=== PATIENT | female | born 1945 | race Caucasian/White ===

== ENCOUNTER 2018-04-16 15:11 | Emergency (ER) | payer MEDICARE ==
[2018-04-16 15:20] VITALS: O2SAT 96
--- NOTE | 2018-04-16 17:18 | CT ---
PROCEDURE: CT HEAD WITHOUT CONTRAST. HISTORY: dizziness COMPARISON: None available. TECHNIQUE: Axial computed tomography images were obtained through the head/brain without intravenous contrast. Radiation dose: Total exam DLP = 890.91 mGy-cm. This CT exam was performed using one or more of the following dose reduction techniques: Automated exposure control, adjustment of the mA and/or kV according to patient size, and/or use of iterative reconstruction technique. FINDINGS: HEMORRHAGE: No intracranial hemorrhage. BRAIN: No mass effect or edema. No atrophy or chronic microvascular ischemic changes. VENTRICLES: Unremarkable. No hydrocephalus. CALVARIUM: Unremarkable. PARANASAL SINUSES: Unremarkable as visualized. No significant inflammatory changes. MASTOID AIR CELLS: Unremarkable as visualized. No inflammatory changes. OTHER FINDINGS: None. IMPRESSION: No evidence of acute intracranial hemorrhage mass effect or midline shift.
--- NOTE | 2018-04-16 17:44 | C.PDOC ---
History Of Present Illness 72yo female, presents to ED stating her ears have been clogged for 2 weeks and she has intermittent episodes of dizziness. She denies any associated headache, shortness of breath, chest pain, nausea, vomiting. She also denies any injuries or trauma. Patient has no other medical complaints. PMD: None Time Seen by Provider: 04/16/18 15:32 Chief Complaint (Nursing): ENT Problem History Per: Patient History/Exam Limitations: None Onset/Duration Of Symptoms: Days Current Symptoms Are (Timing): Still Present Past Medical History Reviewed: Historical Data, Nursing Documentation, Vital Signs Vital Signs: Last Vital Signs Temp 97.8 F 04/16/18 15:16 Pulse 82 04/16/18 15:16 Resp 18 04/16/18 15:16 BP 136/71 04/16/18 15:16 Pulse Ox 96 04/16/18 17:55 - Medical History PMH: HTN, Hypercholesterolemia Surgical History: No Surg Hx Family History: States: No Known Family Hx, Unknown Family Hx - Social History Hx Tobacco Use: No Hx Alcohol Use: No Hx Substance Use: No - Immunization History Hx Tetanus Toxoid Vaccination: No Hx Influenza Vaccination: No Review Of Systems Except As Marked, All Systems Reviewed And Found Negative. Constitutional: Negative for: Fever, Chills ENT: Positive for: Other (ears clogged) Cardiovascular: Negative for: Chest Pain Respiratory: Negative for: Cough, Shortness of Breath Gastrointestinal: Negative for: Nausea, Vomiting Neurological: Positive for: Dizziness Physical Exam - Physical Exam Appears: Non-toxic, No Acute Distress Skin: Normal Color, Warm, Dry Head: Atraumatic, Normacephalic Eye(s): bilateral: Normal Inspection Ear(s): Bilateral: Other (bilteral TM with air fluid levels. ear canal clear. no mastoid tenderness.) Neck: Normal ROM, Supple Chest: Symmetrical Cardiovascular: Rhythm Regular, Other (no carotid bruits) Respiratory: Normal Breath Sounds Neurological/Psych: Oriented x3, Normal Speech, Normal Cognition, Normal Motor, Normal Sensation ED Course And Treatment O2 Sat by Pulse Oximetry: 96 (RA) Pulse Ox Interpretation: Normal Medical Decision Making Medical Decision Making: IMpression: Ear congestion, intermittent dizziness Plan: -- CT head w.o contrast -- Sudafed 60mg PO -- Amoxicillin 500mg PO Time: 1741 CT head reviewed and shows no acute findings. Patient stable for discharge home, instructed to take medications as prescribed and to follow up with PMD in 2-3 days. Disposition Counseled Patient/Family Regarding: Studies Performed, Diagnosis, Need For Followup, Rx Given - Disposition Referrals: Bar Arrieta MD [Staff Provider] - Disposition: HOME/ ROUTINE Disposition Time: 17:42 Condition: STABLE Additional Instructions: follow up with ENT in 2 days call to make an appointment take medications as prescribed return to ER if symptoms worsens or progress Prescriptions: Amoxicillin 875 mg PO BID #20 tablet Pseudoephedrine HCl [Sudafed] 30 mg PO TID PRN #20 tablet PRN Reason: Dizziness Instructions: Ear Infections (Otitis Media) (DC), Dizziness, Nonvertigo, (DC) Forms: [employer] (Guatemalan), Gen Discharge Inst Guatemalan Print Language: AMHARIC - Clinical Impression Clinical Impression: Congestion of both ears, Dizziness - Scribe Statement The provider has reviewed the documentation as recorded by the Scribe (Radha Mcgrath) Provider Attestation: All medical record entries made by the Roscoeibe were at my direction and personally dictated by me. I have reviewed the chart and agree that the record accurately reflects my personal performance of the history, physical exam, medical decision making, and the department course for this patient. I have also personally directed, reviewed, and agree with the discharge instructions and disposition.
[2018-04-16 18:03] VITALS: BP 134/82; PULSE 71; RESP 20; TEMP 98.3
--- NOTE | 2018-04-17 12:04 | CARD ---
APPROVED REPORT EKG Measurement Heart [id number] <Conclusion> Normal sinus rhythm Left anterior fascicular block Abnormal ECG
== END 2018-04-16 18:03 | disposition home or self-care (01) ==
LOC: C.ER 15:11
DX: R42 Dizziness and giddiness (principal); H83.8X3 Other specified diseases of inner ear, bilateral; I10 Essential (primary) hypertension; E78.00 Pure hypercholesterolemia, unspecified

== ENCOUNTER 2018-04-20 07:45 | Emergency (ER) | payer MEDICARE ==
[2018-04-20 07:55] VITALS: BP 142/74; PULSE 73; RESP 18; TEMP 97.9; O2SAT 97
--- NOTE | 2018-04-20 08:29 | C.PDOC ---
History Of Present Illness 72 y/o female brought in by ambulance for complaints of nasal congestion and vertigo-like dizziness that began this morning. Patient reports symptoms were provoked by leaning forward while gardening. Of note she was diagnosed with bilateral ear infections 4 days ago, and prescribed Augmentin BID and Sudafed. Patient denies taking either medication this morning. She denies any associated headaches, fever, chills, or other complaints. Patient does complain of stomach irritation and nausea. No vomiting. Time Seen by Provider: 04/20/18 08:17 Chief Complaint (Nursing): Dizziness/Lightheaded History Per: Patient History/Exam Limitations: no limitations Onset/Duration Of Symptoms: Hrs Current Symptoms Are (Timing): Still Present Activity At Onset Of Symptoms: Change In Head Position Possible Causative Factor(s): Vertigo Past Medical History Reviewed: Historical Data, Nursing Documentation, Vital Signs Vital Signs: Last Vital Signs Temp 97.9 F 04/20/18 07:52 Pulse 73 04/20/18 07:52 Resp 18 04/20/18 07:52 BP 142/74 04/20/18 07:52 Pulse Ox 97 04/20/18 08:28 - Medical History PMH: HTN, Hypercholesterolemia Other Surgeries: Eye surgery Family History: States: Unknown Family Hx - Social History Hx Tobacco Use: No Hx Alcohol Use: No Hx Substance Use: No - Immunization History Hx Tetanus Toxoid Vaccination: No Hx Influenza Vaccination: No Review Of Systems Except As Marked, All Systems Reviewed And Found Negative. Constitutional: Negative for: Fever, Chills ENT: Positive for: Nose Congestion. Negative for: Ear Pain, Ear Discharge Respiratory: Negative for: Cough, Shortness of Breath Gastrointestinal: Positive for: Nausea, Abdominal Pain. Negative for: Vomiting Musculoskeletal: Negative for: Neck Pain Neurological: Positive for: Dizziness (room spinning). Negative for: Weakness, Numbness, Change in Speech, Headache Physical Exam - Physical Exam Appears: Non-toxic, No Acute Distress, Other (Morbidly obese female) Skin: Normal Color, Warm, Dry Head: Atraumatic, Normacephalic Eye(s): bilateral: Normal Inspection, PERRL, EOMI Ear(s): Bilateral: Normal (non-erythematous, non-bulging) Nose: Discharge (nasal congestion noted) Oral Mucosa: Moist Throat: Normal, No Erythema, No Exudate Neck: Normal ROM, Supple Cardiovascular: Rhythm Regular, No Murmur Respiratory: Normal Breath Sounds, No Accessory Muscle Use Gastrointestinal/Abdominal: Soft, No Tenderness, No Distention Back: Normal Inspection, No CVA Tenderness, No Vertebral Tenderness Extremity: Bilateral: Atraumatic, Normal Color And Temperature, Normal ROM Pulses: Left Dorsalis Pedis: Normal, Right Dorsalis Pedis: Normal Neurological/Psych: Oriented x3, Normal Speech, Normal Cranial Nerves, Normal Motor, Normal Sensation, Other (No focal deficits) Gait: Steady ED Course And Treatment O2 Sat by Pulse Oximetry: 97 (RA) Pulse Ox Interpretation: Normal Medical Decision Making Medical Decision Making: b/l ear fluid levels from Tuesday have resolved. normal TM's bl + nasal congestion- pt doing yard work this AM and did not take pseudafed/amox this morning Stomach upset from Amox//augmentin typical pepcid given and recommended Disposition Doctor Will See Patient In The: Office Counseled Patient/Family Regarding: Studies Performed, Diagnosis - Disposition Referrals: [facility] [Outside] Bar Arrieta MD [Staff Provider] - Disposition: HOME/ ROUTINE Disposition Time: 08:28 Condition: GOOD Additional Instructions: sinus congestion: no signs of infection Flonase spray 1 spray each side every 12 hours as needed psdudafed 30 mg tabs every 6 hours as needed Avoid outdoor/gardening- this provokes seasonal allergies Ear infections: Seem to be resolved continue the Augmentin/Amoxicillin until completed Stomach irritation usually provoked by the Amoxicillin Pepcid 20 mg twice a day- lessens stomach irritation Follow-up in our outpatient Family [facility] or with Dr. Arrieta (ENT) as needed Instructions: Seasonal Allergies in Adults, Dizziness, Nonvertigo, (DC) Forms: [employer] (Frisian) - POA Present On Arrival: None - Clinical Impression Clinical Impression: Dizziness, Nasal congestion - Scribe Statement The provider has reviewed the documentation as recorded by the Scribe (Vilma Saldivar) Provider Attestation: All medical record entries made by the Scribe were at my direction and personally dictated by me. I have reviewed the chart and agree that the record accurately reflects my personal performance of the history, physical exam, medical decision making, and the department course for this patient. I have also personally directed, reviewed, and agree with the discharge instructions and disposition.
== END 2018-04-20 09:07 | disposition home or self-care (01) ==
LOC: C.ER 07:45
DX: R09.81 Nasal congestion (principal); R42 Dizziness and giddiness; I10 Essential (primary) hypertension; E78.00 Pure hypercholesterolemia, unspecified